=== PATIENT | male | born 1935 | race Caucasian/White ===

== ENCOUNTER 2018-10-03 19:05 | Emergency (ER) | payer MEDICARE ==
[~2018-10-03] VITALS: Ht 190.5 cm; Wt 68.0 kg
--- NOTE | 2018-10-03 19:29 | NUR ---
PT ASSIGNED TO ROOM 14, THIS RN AND PROVIDER TO ROOM FOR EVALUATION. PT NOT IN ROOM, PT WAS EVALUATED IN TRIAGE/PIT, CALLED RADIOLOGY, PT WENT TO RAD FROM TRIAGE, REMAINS IN RADIOLOGY. TO ASSESS PT UPON RETURN TO ER.
--- NOTE | 2018-10-03 19:46 | NUR ---
ASSUMED CARE OF PT AT THIS TIME. AMBULATORY TO ROOM FROM RADIOLOGY WITH STEADY GAIT WITHOUT ASSISTANCE. 83 Y/O A&OX4, STATES "I DID SOMETHING TO MY BACK, NOT SURE WHAT BUT STARTED YESTERDAY AFTERNOON, SPASMING, WHEN IT COMES THE PAIN IS BAD, RIGHT NOW IT'S NOT TOO BAD." DENIES ANY TRAUMA OR INJURY, ABD PAIN, URINARY DIFFICULTY OR SYMTPOMS, CP, SOB, OR FLANK PAIN. RATES LOW BACK PAIN 3-4/10. NON TENDER TO PALPATION. CONT PULSE OX, BP MONITORS APPLIED. VSS. DENIES NEED TO USE RESTROOM, "I DON'T HAVE TO GO," AWARE UA SAMPLE NEEDED. TO CALL [employer] WHEN HAVING URGE. PA AT BEDSIDE FOR EVALUATION. CALL LIGHT IN REACH. FALL PRECAUTIONS IN PLACE. LAB AT BEDSIDE.
[2018-10-03] MEDS ORDERED: MYCO250C4 PO (19:54)
[2018-10-03] MEDS ORDERED: LEVO25TA4 PO (19:54)
[2018-10-03] MEDS ORDERED: ATOR-2 PO (19:54)
[2018-10-03] MEDS ORDERED: LOSA25TA25 PO (19:54)
[2018-10-03 19:56] LABS: BASOPHILS # (AUTO) 0.02 x10^3/uL (0-0.1); BASOPHILS % (AUTO) 0 % (0-1); EOSINOPHILS # (AUTO) 0.02 x10^3/uL (0-0.4); EOSINOPHILS % (AUTO) 0 % (1-7); LYMPHOCYTES # (AUTO) 1.02 x10^3/uL (1-3.4); LYMPHOCYTES % (AUTO) 20 % (22-44); MD NO; MEAN CORPUSCULAR HEMOGLOBIN 31.1 pg (27.5-34.5); MEAN CORPUSCULAR HGB CONC 33.3 g/dL (33.2-36.2); MEAN CORPUSCULAR VOLUME 93.3 fL (81-97); MEAN PLATELET VOLUME 7.8 fL (7.4-10.4); MONOCYTES % (AUTO) 12 % (2-9); NEUTROPHILS # (AUTO) 3.57 x10^3/uL (1.8-6.8); NEUTROPHILS % (AUTO) 68 % (42-75); PLATELET COUNT 174 x10^3/uL (130-400); RED BLOOD COUNT 4.85 x10^6/uL (4.38-5.82); RED CELL DISTRIBUTION WIDTH 13.5 % (9.4-14.8)
[2018-10-03 20:06] LABS: ALANINE AMINOTRANSFERASE 19 U/L (12-78); ALBUMIN 3.9 g/dL (3.4-5.0); ANION GAP 6 mmol/L (5-15); CHLORIDE 111 mmol/L (98-107)
[2018-10-03 20:08] LABS: ALKALINE PHOSPHATASE 58 U/L (45-117); BILIRUBIN,TOTAL 0.7 mg/dL (0.2-1.0); TOTAL PROTEIN 6.7 g/dL (6.4-8.2)
--- NOTE | 2018-10-03 20:13 | NUR ---
PT UP AND AMBULATORY TO RESTROOM WITH STEADY GAIT FOR UA. PT REPORTS "SPASMS WITH BENDING FORWARD TO STAND UP, IT GETS TIGHT AND THEN ONCE I'M UP IT LOOSENS," DISCUSSED WITH ROBIN FAROOQ, AWARE. NO NEW ORDERS RECEIVED.
--- NOTE | 2018-10-03 20:22 | NUR ---
CLEAN CATCH UA COLLECTED AND SENT TO LAB. PT AMBULATED BACK TO ROOM WITH STEADY GAIT. RESTING IN POSITION OF COMFORT, PROVIDED PILLOW AND WARM BLANKET FOR COMFORT. RATES PAIN 3/10, REFUSES NEED FOR PAIN MEDICATION. CALL LIGHT IN REACH. FALL PRECAUTIONS IN PLACE. ROBIN FAROOQ AT BEDSIDE.
[2018-10-03 20:30] LABS: MICROSCOPIC AUTO
[2018-10-03 20:32] LABS: CULTURE INDICATED? NO
--- NOTE | 2018-10-03 20:46 | NUR ---
PT UP FOR RECHECK
--- NOTE | 2018-10-03 20:55 | NUR ---
ROBIN FAROOQ AT BEDSIDE
--- NOTE | 2018-10-03 21:22 | NUR ---
PT REQUESTING TO GO HOME, "THE PA CAME IN AND TALKED TO ME, SAID HE WAS GOING TO SEND ME HOME WITH PRESCRIPTION FOR VALIUM, I'M READY TO GO HOME." DR. MCMAHON AT BEDSIDE FOR EVALUATION, DISCUSSING POC. CALL LIGHT IN REACH. FALL PRECAUTIONS IN PLACE. VSS.
[2018-10-03] MEDS ORDERED: KETOROLAC 30 MG/1 ML ONE (21:26)
[2018-10-03] MEDS ORDERED: ACETAMINOPHEN 500 MG TABLET ONE (21:26)
[2018-10-03] MEDS ORDERED: ACETAMINOPHEN 500 MG TABLET PO ONE (21:30)
[2018-10-03] MEDS ORDERED: KETOROLAC 30 MG/1 ML IM ONE (21:30)
--- NOTE | 2018-10-03 21:33 | NUR ---
PT MEDICATED NOTED PER REQUEST AND ORDER FOR 3/10 LOW BACK PAIN. AWAITING CHART AND DISCHARGE PAPERS FROM ERP. CALL LIGHT IN REACH. VSS. FALL PRECUATIONS IN PLACE.
[2018-10-03 21:42] VITALS: BP 143/70
== END 2018-10-03 21:45 | disposition home or self-care (01) ==
LOC: ED 20:48
DX: S39.012A Strain of muscle, fascia and tendon of lower back, initial encounter (principal); I51.9 Heart disease, unspecified; X58.XXXA Exposure to other specified factors, initial encounter; Y93.89 Activity, other specified; Y92.89 Other specified places as the place of occurrence of the external cause; Y99.8 Other external cause status
CPT/HCPCS: 36415; 72110; 80053; 81001; 85025; 96372; 99284; J1885